=== PATIENT | female | born 1975 | race Caucasian/White ===

== ENCOUNTER 2021-01-03 12:49 | Emergency (ER) | payer MEDICAID ==
--- NOTE | 2021-01-03 12:54 | EDM.PDOC ---
ED HPI GENERAL MEDICAL PROBLEM - General Chief Complaint: Genitourinary Problem Stated Complaint: KIDNEY/FEMALE PROBLEMS Time Seen by Provider: 01/03/21 12:54 Source of Information: Reports: Patient History Limitations: Reports: No Limitations - History of Present Illness INITIAL COMMENTS - FREE TEXT/NARRATIVE: HISTORY AND PHYSICAL: History of present illness: Patient is a 45-year-old female who presents to the emergency room with complaints of low back pain, dysuria and hematuria over the past few days. Patient states she has chronic kidney problems and is prone to kidney infections and UTIs. Patient states her low back pain is more significant than she has had with her previous kidney infections and is concerned she may have pelvic infection as it feels "deep in there". She states she is in a monogamous motor relationship and does not have any concerns of STIs. Denies any vaginal discharge, irritation, bleeding or lesions. Patient denies any fever, chills, headache, change in vision, syncope or near syncope. Denies any chest pain, shortness of breath or cough. Denies any nausea, vomiting, diarrhea, constipation or noted any blood in stool. Patient has been eating and drinking appropriately. Review of systems: As per history of present illness and below otherwise all systems reviewed and negative. Past medical history: As per history of present illness and as reviewed below otherwise noncontributory. Surgical history: As per history of present illness and as reviewed below otherwise noncontributory. Social history: See social history for further information Family history: As per history of present illness and as reviewed below otherwise noncontributory. Physical exam: General: Well developed and well nourished 45-year-old female. Alert and orientated x 3. Nontoxic in appearance and in no acute distress. Vital signs are stable and have been reviewed by me. Nursing notes were reviewed. HEENT: Atraumatic, normocephalic, pupils equal and reactive bilaterally, negative for conjunctival pallor or scleral icterus, mucous membranes moist, trachea midline. No drooling or trismus noted. No meningeal signs. No hot potato voice noted. Lungs: Clear to auscultation bilaterally. No wheezes, rales, or rhonchi. Chest nontender. Normal work of breathing, no accessory muscles used. Heart: S1S2, regular rate and rhythm without overt murmur, gallops, or rubs. No JVD. No peripheral edema Abdomen: Soft, nondistended, nontender. Normoactive bowel sounds. Negative for masses. No costovertebral tenderness. Pelvis: Stable nontender. Genitourinary/Rectal: Deferred. Skin: Intact, warm, dry. No lesions or rashes noted. Hematologic: No petechiae or purpra. Mucosa appropriate color and normal nail bed color and refill. Extremities: Atraumatic, moves all extremities per self without difficulty or deficits, negative for cords or calf pain. Neurovascular unremarkable. Neuro: Awake, alert, oriented. Cranial nerves II through XII unremarkable. Cerebellum unremarkable. Motor and sensory unremarkable throughout. Exam nonfocal. Psychiatric: Mood and affect are appropriate. Normal thought process. Answering questions appropriately. Notes: *This patient was seen and evaluated during the 2019 SARS-CoV-2 novel coronavirus pandemic period. Community viral transmission is ongoing at time of this encounter and the emergency department is operating under pandemic response procedures. Patient is a 45-year-old female who presents to the emergency room with concerns she has a urinary tract infection and/or kidney infection. Patient states she has low back pain which is typical with her previous UTIs although she states this feels different as it feels "much deeper... Almost into the pelvis". She denies any concerns for STIs and does not want a pelvic exam. She is agreeable for self swab for JESSICA. Patient's urine shows a significant bladder infection. Culture has been added. Pelvic swab is unremarkable. I have talked with the patient about today's findings, in addition to providing specific details for plan of care. Reassessment at the time of disposition demonstrates that the patient is in no acute distress. The patient is stable for discharge, counseling was provided and we discussed in great detail signs and symptoms that would prompt them to return to the Emergency Department. Medication, follow up and supportive care measures were reviewed and discussed. Voices understanding and is agreeable to plan of care. Denies any further questions or concerns at this time. Diagnostics: UA, Tric/Frederick/Cand [employer]: Bactrim DS, Pyridium Prescription: Bactrim DS, Pyridium Impression: UTI Plan: 1. You were evaluated today on an emergent basis. Your urine shows a significant bladder infection. Please take the antibiotic as prescribed. We also added a urine culture to make sure you are on the correct antibiotic. You may receive a phone call from us if we need to change your medication. Pyridium is for the discomfort associated with urinating, please be aware that this can turn your urine bright orange (normal). Increase your fluids. 2. You can alternate Tylenol and ibuprofen as needed for pain and fever management. 3. We encourage you to follow up with your primary care provider and/or recommended specialist in the next few days for re-evaluation and further care/management. 4. If your symptoms should worsen, new symptoms develop or any of the signs and symptoms we discussed should arise please return to the emergency room or call 911 (if needed). Definitive disposition and diagnosis as appropriate pending reevaluation and review of above. Groin Pain Score (Numeric/FACES): 4 - Related Data Allergies Allergy/AdvReac Type Severity Reaction Status Date / Time aspirin Allergy Chest Verified 01/03/21 13:04 Tightness Penicillins Allergy Vaginitis Verified 01/03/21 13:04 Home Meds: Home Meds Phenazopyridine HCl [Pyridium] 100 mg PO TID 2 Days #6 tablet 01/03/21 [Rx] Sulfamethoxazole/Trimethoprim [Bactrim Ds Tablet] 1 each PO BID 7 Days #14 tablet 01/03/21 [Rx] medroxyPROGESTERone [Provera] 10 mg PO DAILY 01/03/21 [History] ED ROS GENERAL - Review of Systems Review Of Systems: Comprehensive ROS is negative, except as noted in HPI. ED EXAM, RENAL/ - Physical Exam Exam: See Below (See dictation) Course - Vital Signs Last Recorded V/S: Last Vital Signs Temp 96.9 F 01/03/21 13:06 Pulse 84 01/03/21 13:06 Resp 18 01/03/21 13:06 BP 162/94 H 01/03/21 13:06 Pulse Ox 98 01/03/21 13:06 - Orders/Labs/Meds Orders: Active Orders 24 hr Category Date Time Status CULTURE URINE [MREF] Stat Lab 01/03/21 13:15 Received Labs: Laboratory Tests 01/03/21 01/03/21 Range/Units 13:15 13:28 Urine Color YELLOW Urine Appearance SLT CLOUDY Urine pH 6.5 (5.0-8.0) Ur Specific [place] 1.020 (1.001-1.035) Urine Protein TRACE H (NEGATIVE) mg/dL Urine Glucose (UA) NEGATIVE (NEGATIVE) mg/dL Urine Ketones NEGATIVE (NEGATIVE) mg/dL Urine Occult Blood SMALL H (NEGATIVE) Urine Nitrite POSITIVE H (NEGATIVE) Urine Bilirubin NEGATIVE (NEGATIVE) Urine Urobilinogen 0.2 (<2.0) EU/dL Ur Leukocyte Esterase SMALL H (NEGATIVE) Urine RBC 3-6 (0-2/HPF) Urine WBC 40-50 (0-5/HPF) Ur Epithelial Cells MODERATE (NONE-FEW) Urine Bacteria 3+ H (NEGATIVE) Urine Mucus LIGHT (NONE-MOD) Trena species DNA NEGATIVE (NEGATIVE) Gardnerella DNA Probe NEGATIVE (NEGATIVE) Trichomonas DNA Probe NEGATIVE (NEGATIVE) Meds: Medications Discontinued Medications Generic Name Dose Route Start Last Admin Trade Name Freq PRN Reason Stop Dose Admin Phenazopyridine HCl 200 mg 01/03/21 13:47 01/03/21 13:58 Phenazopyridine 200 Mg Tab PO 01/03/21 13:48 200 mg ONETIME ONE Administration Trimethoprim/Sulfamethoxazole 1 tab 01/03/21 13:47 01/03/21 13:58 Sulfamethoxazole/Trimethoprim 800-160 Mg Tab PO 01/03/21 13:48 1 tab ONETIME ONE Administration Departure - Departure Time of Disposition: 14:33 Disposition: Home, Self-Care 01 Clinical Impression: UTI, Urinary tract infectious disease - Discharge Information Prescriptions: Sulfamethoxazole/Trimethoprim [Bactrim Ds Tablet] 1 each PO BID 7 Days #14 tablet Phenazopyridine HCl [Pyridium] 100 mg PO TID 2 Days #6 tablet Instructions: Urinary Tract Infection, Adult, [id number] Referrals: PCP,None [Primary Care Provider] - Forms: ED Department Discharge Additional Instructions: The following information is given to patients seen in the emergency department who are being discharged to home. This information is to outline your options for follow-up care. We provide all patients seen in our emergency department with a follow-up referral. The need for follow-up, as well as the timing and circumstances, are variable depending upon the specifics of your emergency department visit. If you don't have a primary care physician on staff, we will provide you with a referral. We always advise you to contact your personal physician following an emergency department visit to inform them of the circumstance of the visit and for follow-up with them and/or the need for any referrals to a consulting specialist. The emergency department will also refer you to a specialist when appropriate. This referral assures that you have the opportunity for follow-up care with a specialist. All of these measure are taken in an effort to provide you with optimal care, which includes your follow-up. Under all circumstances we always encourage you to contact your private physician who remains a resource for coordinating your care. When calling for follow-up care, please make the office aware that this follow-up is from your recent emergency room visit. If for any reason you are refused follow-up, please contact the [facility] Emergency Department at and asked to speak to the emergency department charge nurse. [facility] [address] [place] [id number] [id number] Thank you for choosing the [facility] emergency department in [place] for your medical needs today. It was a pleasure caring for you. Today you were seen in the emergency department for UTI. 1. You were evaluated today on an emergent basis. Your urine shows a significant bladder infection. Please take the antibiotic as prescribed. We also added a urine culture to make sure you are on the correct antibiotic. You may receive a phone call from us if we need to change your medication. Pyridium is for the discomfort associated with urinating, please be aware that this can turn your urine bright orange (normal). Increase your fluids. 2. You can alternate Tylenol and ibuprofen as needed for pain and fever management. 3. We encourage you to follow up with your primary care provider and/or recommended specialist in the next few days for re-evaluation and further care/management. 4. If your symptoms should worsen, new symptoms develop or any of the signs and symptoms we discussed should arise please return to the emergency room or call 911 (if needed). Sepsis Event Note (ED) - Focused Exam Vital Signs: Vital Signs Temp Pulse Resp BP Pulse Ox 01/03/21 13:06 96.9 F 84 18 162/94 H 98 - My Orders Last 24 Hours: My Active Orders 01/03/21 13:15 CULTURE URINE [MREF] Stat - Assessment/Plan Last 24 Hours: My Active Orders 01/03/21 13:15 CULTURE URINE [MREF] Stat
[2021-01-03] MEDS ORDERED: Phenazopyridine 200 MG Tab PO ONE (13:47)
[2021-01-03] MEDS ORDERED: Sulfamethoxazole/Trimethoprim 800-160 MG Tab PO ONE (13:47)
== END 2021-01-03 14:52 | disposition home or self-care (01) ==
LOC: MW.ED 12:49
DX: N39.0 Urinary tract infection, site not specified (principal); Z88.8 Allergy status to other drugs, medicaments and biological substances; Z88.0 Allergy status to penicillin
CPT/HCPCS: 51798; 81001; 87086; 87088; 87186; 87480; 87510; 87660; 99283; A9270